=== PATIENT | male | born 1960 | race Caucasian/White ===

== ENCOUNTER → 2016-06-20 | Outpatient (CLI) | payer OTHER, MEDICAID ==
[2016-06-20 14:50] VITALS: BP 157/80; PULSE 74; TEMP 98.5; BMI 42.1
[2016-06-20 15:54] LABS: CH 30.1; CHCM 33.5; HCT 45.6 % (39.0-53.0); HGB 14.5 gm/dL (13.0-17.5); MCH 28.7 pg (25.0-35.0); MCHC 31.8 g/dL (31.0-37.0); MCV 90.4 fL (80.0-100.0); Mean Platelet Volume 7.3; RBC 5.04 m/uL (4.30-5.90); RDW 12.6 % (11.5-15.5); WBC 7.6 k/uL (3.8-10.6)
[2016-06-20 16:15] LABS: ALT 127 U/L (21-72); AST 69 U/L (17-59); Alkaline Phosphatase 71 U/L (38-126); Anion Gap 18 mmol/L; Blood Urea Nitrogen 18 mg/dL (9-20); Calcium 10.5 mg/dL (8.4-10.2); Carbon Dioxide 27 mmol/L (22-30); Chloride 100 mmol/L (98-107); Glucose 90 mg/dL (74-99); Iron 77 ug/dL (49-181); Non-African American GFR(MDRD) >60 (>60 ml/min/1.73 sqM); Potassium 4.7 mmol/L (3.5-5.1); Sodium 145 mmol/L (137-145); Total Bilirubin 0.7 mg/dL (0.2-1.3); Total Protein 8.3 g/dL (6.3-8.2)
[2016-06-20 16:25] LABS: % Iron Saturation 26.5 % (20-50); Total Iron Binding Capacity 291 ug/dL (261-462)
[2016-06-20 17:18] LABS: Vitamin B12 499 pg/mL (239-931)
--- NOTE | 2016-06-28 14:27 | P.BASOAP ---
Subjective Principal diagnosis: Morbid obesity Patient doing quite well today. He has had 15 pound weight loss in the last 2 weeks. Denies abdominal pain. He had 1 episode of emesis to dry chicken. No heartburn. Objective - Vital Signs Vital signs: Vital Signs Temp 98.5 F 06/20/16 14:43 Pulse 74 06/20/16 14:43 Resp BP 157/80 06/20/16 14:43 Pulse Ox Intake & Output 06/19/16 06/20/16 06/20/16 18:59 06:59 18:59 Weight 129.365 kg - Exam Abdomen: Soft, nontender, nondistended, incisions clean and dry Assessment/Plan (1) Morbid obesity Narrative/Plan: Continue antiacid therapy for now. Increase exercise activities. Continue dietary regimen. Check1 month labs. Follow-up in the office in 1 month Plan: Date: 06/20/16 Initial Weight: Initial BMI: Current Weight: 129.365 kg Current BMI: 42.1 Type of Surgery: Total Volume in Band: Previous Volume: Volume Removed: Volume Added: Band Size:
== END | disposition home or self-care (01) ==
LOC: BARWHC3 14:20
PROVIDERS: ATTEND Surgery
DX: Z71.3 Dietary counseling and surveillance (principal); E66.01 Morbid (severe) obesity due to excess calories
CPT/HCPCS: 80053; 82306; 82607; 82746; 83540; 83550; 84425; 84443; 85027; 99211

== ENCOUNTER → 2016-06-30 | Outpatient (CLI) | payer OTHER, MEDICAID ==
[2016-06-30 14:18] LABS: Calcium 10.2 mg/dL (8.4-10.2)
== END | disposition home or self-care (01) ==
LOC: LABWHC1 11:44
PROVIDERS: ATTEND Family Medicine
DX: I10 Essential (primary) hypertension (principal); E03.9 Hypothyroidism, unspecified
CPT/HCPCS: 36415; 82310; 84439; 84443

== ENCOUNTER → 2016-08-08 | Outpatient (CLI) | payer OTHER, MEDICAID ==
[2016-08-08 17:07] LABS: Chloride 102 mmol/L (98-107); Glucose 91 mg/dL (74-99); Potassium 4.6 mmol/L (3.5-5.1); Sodium 145 mmol/L (137-145); Total Protein 7.9 g/dL (6.3-8.2)
[2016-08-08 17:09] LABS: ALT 72 U/L (21-72); AST 63 U/L (17-59); Alkaline Phosphatase 85 U/L (38-126); Blood Urea Nitrogen 21 mg/dL (9-20); Calcium 9.9 mg/dL (8.4-10.2); Carbon Dioxide 29 mmol/L (22-30); Magnesium 2.1 mg/dL (1.6-2.3); Non-African American GFR(MDRD) >60 (>60 ml/min/1.73 sqM); Total Bilirubin 0.8 mg/dL (0.2-1.3)
[2016-08-08 21:02] LABS: Anion Gap 19 mmol/L
== END | disposition home or self-care (01) ==
LOC: LABWHC1 16:27
PROVIDERS: ATTEND Family Medicine
DX: D64.9 Anemia, unspecified (principal); E03.9 Hypothyroidism, unspecified; Z79.899 Other long term (current) drug therapy; Z98.84 Bariatric surgery status
CPT/HCPCS: 36415; 80053; 82306; 83735; 84443

== ENCOUNTER → 2016-08-22 | Outpatient (CLI) | payer OTHER, MEDICAID ==
[2016-08-22 14:53] VITALS: BMI 37.7
[2016-08-22 15:12] VITALS: BP 122/76; PULSE 48; RESP 20; TEMP 98.3
--- NOTE | 2016-08-22 15:21 | P.BASOAP ---
Subjective Principal diagnosis: Obesity Patient on follow-up. Doing well at this point. Has had excellent weight loss. Currently sitting at 255. 30 pound weight loss since June. Some cold intolerance. No nausea or vomiting. No reflux. Had recent labs in late July by his primary care physician. These were reviewed and appear normal. Objective - Vital Signs Vital signs: Vital Signs Temp 98.3 F 08/22/16 14:39 Pulse 48 L 08/22/16 14:39 Resp 20 08/22/16 14:39 BP 122/76 08/22/16 14:39 Pulse Ox Intake & Output 08/21/16 08/22/16 08/22/16 18:59 06:59 18:59 Weight 115.757 kg - Exam Abdomen: Soft, nontender, nondistended Assessment/Plan (1) Morbid obesity Narrative/Plan: Continue following dietary and exercise regimen. Increase vegetables and fruit content. Follow-up in the office in 6 weeks. Plan: Date: 08/22/16 Initial Weight: 150.819 kg Initial BMI: 49.1 Current Weight: 115.757 kg Current BMI: 37.7 Type of Surgery: Total Volume in Band: Previous Volume: Volume Removed: Volume Added: Band Size:
== END | disposition home or self-care (01) ==
LOC: BARWHC3 13:50
PROVIDERS: ATTEND Surgery
DX: Z71.3 Dietary counseling and surveillance (principal); E66.01 Morbid (severe) obesity due to excess calories; Z68.37 Body mass index [BMI] 37.0-37.9, adult
CPT/HCPCS: 99211

== ENCOUNTER → 2016-10-31 | Outpatient (CLI) | payer OTHER, MEDICAID ==
[2016-10-31 14:11] VITALS: BP 113/72; PULSE 79; TEMP 98.5
[2016-10-31 15:07] VITALS: BMI 33.3
--- NOTE | 2016-10-31 17:39 | PN ---
DATE OF SERVICE: 10/31/2016 BARIATRIC PROGRESS NOTE: CHIEF COMPLAINT: Morbid obesity. INTERVAL HISTORY: Patient doing well today. His weight is down an additional 30 pounds over the last 2 months. He just recently returned from vacation where he was sailing. He feels much more active. Denies reflux. He stopped his antacids. He is due for 6-month blood work at this time. No abdominal pain. PHYSICAL EXAM: Abdomen is soft, nontender, nondistended. IMPRESSION: A 55-year-old male status post sleeve gastrectomy. PLAN: 1. Check 6-month lab work. 2. Continue bariatric dietary and exercise regimen. 3. Evaluation by dietary today.
== END | disposition home or self-care (01) ==
LOC: BARWHC3 13:48
PROVIDERS: ATTEND Surgery
DX: E66.01 Morbid (severe) obesity due to excess calories (principal); Z98.84 Bariatric surgery status
CPT/HCPCS: 97803; 99211